=== PATIENT | female | born 1985 | race Caucasian/White ===

== ENCOUNTER → 2020-05-16 | Outpatient (CLI) | payer OTHER, SELFPAY ==
[2020-05-20 03:07] LABS: Age Gdln ACOG Testing 30-65 (.)
[2020-05-22 05:09] LABS: HPV APTIMA, High Risk Negative (Negative); HPV Reflexed? NOT INDICATED
== END | disposition home or self-care (01) ==
LOC: LABSPEC 13:23
PROVIDERS: PCP Family Medicine; Visit Provider Obstetrics & Gynecology
DX: Z12.4 Encounter for screening for malignant neoplasm of cervix (principal)
CPT/HCPCS: 88175; G0145

== ENCOUNTER → 2022-08-07 | Outpatient (CLI) | payer OTHER, SELFPAY ==
[2022-08-07 10:45] LABS: Absolute Lymphocyte Count 1.33 X10^3/uL (0.83-4.51); Absolute Neutrophil Count 6.6 X10^3/uL (2.0-7.7); Basophil# 0.03 X10^3/uL; Basophil% 0.4 % (0-1); Eosinophil# 0.06 X10^3/uL; Eosinophils% 0.7 % (0-5); Hematocrit 40.1 % (37-47); Hemoglobin 14.1 g/dL (12.0-15.0); Lymphocyte # 1.33 X10^3/ul (0.83-4.51); Lymphocyte % 15.7 % (19-41); Mean Corp Hgb Conc 35.2 g/dL (32-36); Mean Corpuscular Volume 85.3 fL (81-99); Mean Platelet Vol. 10.1 fl (6.2-12.0); Monocyte# 0.45 X10^3/uL; Monocyte% 5.3 % (0-10); NRBC Flagged by Analyzer 0 % (0-5); Neutrophil # 6.57 X10^3/uL (2.7-7.7); Neutrophil % 77.4 % (47-70); Platelet Count 199 K/mm3 (150-450); RBC Distribution Width CV 11.8 % (11.6-14.6); RBC Distribution Width SD 36.5 fl (35.1-43.9); White Blood Count 8.5 K/mm3 (4.4-11.0)
[2022-08-07 11:09] LABS: Rubella IgG Reactive (Nonreactive)
[2022-08-07 11:47] LABS: NATERA MAILED SPECIMEN
== END | disposition home or self-care (01) ==
LOC: PAVLAB 10:24
PROVIDERS: PCP Family Medicine; Referring Provider Obstetrics & Gynecology; Visit Provider Obstetrics & Gynecology
DX: O09.521 Supervision of elderly multigravida, first trimester (principal)
CPT/HCPCS: 36415; 85025; 86762; 87086; 87088

== ENCOUNTER → 2022-11-28 | Outpatient (CLI) | payer OTHER, SELFPAY ==
[2022-11-28 09:49] LABS: Absolute Lymphocyte Count 1.44 X10^3/uL (0.83-4.51); Absolute Neutrophil Count 5.8 X10^3/uL (2.0-7.7); Basophil# 0.04 X10^3/uL; Basophil% 0.5 % (0-1); Eosinophil# 0.06 X10^3/uL; Eosinophils% 0.8 % (0-5); Hematocrit 37.1 % (37-47); Hemoglobin 12.9 g/dL (12.0-15.0); Lymphocyte # 1.44 X10^3/ul (0.83-4.51); Lymphocyte % 18.4 % (19-41); Mean Corp Hgb Conc 34.8 g/dL (32-36); Mean Corpuscular Hgb 30.9 pg (27.0-32.0); Mean Platelet Vol. 10.3 fl (6.2-12.0); Monocyte# 0.34 X10^3/uL; Monocyte% 4.3 % (0-10); NRBC Flagged by Analyzer 0 % (0-5); Neutrophil # 5.78 X10^3/uL (2.7-7.7); Neutrophil % 73.7 % (47-70); Platelet Count 151 K/mm3 (150-450); RBC Distribution Width CV 12.3 % (11.6-14.6); RBC Distribution Width SD 39.8 fl (35.1-43.9); Red Blood Count 4.17 M/mm3 (4.2-5.4); White Blood Count 7.8 K/mm3 (4.4-11.0)
[2022-11-28 10:08] LABS: Glucose Challenge Gest 1H 50g 121 mg/dL (70-140)
[2022-11-28 10:41] LABS: HIV - WCH Non-Reactive (Nonreactive); Syphilis Antibodies Non-reactive
== END | disposition home or self-care (01) ==
LOC: PAVLAB 09:12
PROVIDERS: PCP Family Medicine; Referring Provider Registered Nurse; Visit Provider Registered Nurse
DX: O09.529 Supervision of elderly multigravida, unspecified trimester (principal); Z3A.00 Weeks of gestation of pregnancy not specified
CPT/HCPCS: 36415; 82950; 85025; 86703; 86780

== ENCOUNTER → 2022-12-18 | Outpatient (CLI) | payer OTHER, SELFPAY | END | disposition home or self-care (01) | LOC: LABSPEC 12:38 | PROVIDERS: Visit Provider Obstetrics & Gynecology | DX: O26.899 Other specified pregnancy related conditions, unspecified trimester (principal); N89.8 Other specified noninflammatory disorders of vagina | CPT/HCPCS: 87070; 87205 ==

== ENCOUNTER → 2023-01-28 | Outpatient (CLI) | payer OTHER, SELFPAY | END | disposition home or self-care (01) | LOC: LABSPEC 16:35 | PROVIDERS: Visit Provider Obstetrics & Gynecology | DX: O09.529 Supervision of elderly multigravida, unspecified trimester (principal) | CPT/HCPCS: 87081 ==

== ENCOUNTER → 2023-02-05 | Outpatient (CLI) | payer OTHER, SELFPAY ==
[2023-02-05 12:12] LABS: ROM Internal Control Test YES-OK TO RESULT pt. (Internal QC); ROM Patient Test Negative (Negative)
== END | disposition home or self-care (01) ==
LOC: LABSPEC 11:51
PROVIDERS: Referring Provider Registered Nurse; Visit Provider Registered Nurse
DX: O09.529 Supervision of elderly multigravida, unspecified trimester (principal)
CPT/HCPCS: 84112

== ENCOUNTER → 2023-02-14 | Outpatient (CLI) | payer OTHER, SELFPAY ==
[2023-02-14 10:35] LABS: Absolute Lymphocyte Count 1.68 X10^3/uL (0.83-4.51); Absolute Neutrophil Count 6.5 X10^3/uL (2.0-7.7); Basophil# 0.06 X10^3/uL; Basophil% 0.7 % (0-1); Eosinophil# 0.07 X10^3/uL; Eosinophils% 0.8 % (0-5); Hematocrit 39.7 % (37-47); Hemoglobin 13.4 g/dL (12.0-15.0); Lymphocyte # 1.68 X10^3/ul (0.83-4.51); Lymphocyte % 18.8 % (19-41); Mean Corp Hgb Conc 33.8 g/dL (32-36); Mean Corpuscular Hgb 30.7 pg (27.0-32.0); Mean Corpuscular Volume 90.8 fL (81-99); Mean Platelet Vol. 11.5 fl (6.2-12.0); Monocyte# 0.52 X10^3/uL; Monocyte% 5.8 % (0-10); NRBC Flagged by Analyzer 0 % (0-5); Neutrophil # 6.51 X10^3/uL (2.7-7.7); Neutrophil % 72.7 % (47-70); Platelet Count 124 K/mm3 (150-450); RBC Distribution Width CV 13.6 % (11.6-14.6); Red Blood Count 4.37 M/mm3 (4.2-5.4)
== END | disposition home or self-care (01) ==
LOC: PAVLAB 10:23
PROVIDERS: PCP Family Medicine; Referring Provider Advanced Practice Midwife; Visit Provider Advanced Practice Midwife
DX: Z34.93 Encounter for supervision of normal pregnancy, unspecified, third trimester (principal); Z86.2 Personal history of diseases of the blood and blood-forming organs and certain disorders involving the immune mechanism; Z3A.38 38 weeks gestation of pregnancy
CPT/HCPCS: 36415; 85025

== ENCOUNTER 2023-02-17 07:00 | Inpatient (IN) | payer OTHER, SELFPAY ==
[2023-02-17] VITALS (43 sets, daily range): BP systolic 88–126; BP diastolic 54–77; PULSE 59–90; TEMP 35.7–36.4; O2SAT 97–100; BMI 26.9
[2023-02-17] MEDS: Lactated Ringers 1,000 ML 50 ML IV (07:30)
--- NOTE | 2023-02-17 07:47 | HP.PCM.OB_ITS ---
HPI - General General Date of Admission: 02/17/23 HPI Narrative ZULLY FERNÁNDEZ, is a 37 F who presents for IOL secondary to AMA. Maternal Data Information GALDINO Calculator Estimated Delivery Date Method Current WG Current Estimate 02/24/23 Ultrasound #2 39w 0d Other Estimates 03/06/23 Ultrasound #1 37w 4d PFSH PFS Medical History (Updated 02/14/23 @ 11:15 by Julieta Hall CNM) Gestational thrombocytopenia History of thrombocytopenia Home Medications vits,calcium no.78-iron fumarate-folic acid 29 mg-1 mg tablet (Prenatabs FA) 1 tab PO DAILY 11/20/15 [History Last Taken 11/19/15 one] valacyclovir 500 mg tablet (Valtrex) 500 mg PO DAILY #30 tabs 10/02/22 [Rx Last Taken Unknown] sertraline 50 mg tablet (Zoloft) 50 mg PO DAILY #90 tabs 11/28/22 [Rx Last Taken Unknown] nystatin 100,000 unit/gram topical cream 1 applic topical BID #30 grams 01/16/23 [Rx Last Taken Unknown] Allergy/AdvReac Type Severity Reaction Status Date / Time prednisone AdvReac Intermediate Other Verified 02/14/23 09:40 Family History Mother Breast cancer Cancer Thyroid disorder HYPOTHYROIDISM Surgical History S/P foot surgery, left Social History adopted: No household members: spouse and children housing: house number of children: 2 current occupational status: unemployed current occupation: helps with business current occupational exposures/hazards: No pets and animals: Yes pets and animals: dog(s) history of recent travel: Yes ([place] in July) out of state: Yes out of country: No sexually active: Yes Smoking Status: Never smoker alcohol intake: never substance use type: does not use well-balanced diet: daily or most days caffeine: Yes Type: coffee Number of servings: 1 eating out: rarely or never during the past year weight has: remained stable what type of physical activity do you participate in: none nelia/hinduism: [employer] seatbelt use: always do you feel safe at home: Yes additional social history: Jesús Self employed History 3 Elective abortions Hx Para 2 Spontaneous abortions Hx # Term Pregnancies Ectopic pregnancies Hx # Pregnancies Multiple births # of living children 2 Past Pregnancies Del. Date Name GA/Weeks Outcome Route Bth Weight Gen Labor Lgth Anesthesia Del Locatn Provider FOB Unknown 06/07/13 Hanny 40 live - full term 8#9oz Fema le 12 hours epidural [facility] Libby Youngjonh Jesús Unknown 11/20/15 Falynn 39 live - full term 9#1oz F emale 6-8 Hours epidural [facility] Libby Espinosa Delivery Date: Last Updated by: Lyly Aguirre IOL due to low platelets Visit Details Expected Delivery Route/Plan Labor Preferences- CB/BF classes: no labor support person: Jesús labor intervention preferences: [] pain management options preferred: epidural cut cord/dad catch: yes : yes PP control planned: discussed discussed possible routes of delivery and associated risks: [] special requests: [] Plans Covid status: reviewed Flu vaccine: no Tdap vaccine: decline Rhogam: na LARC form signed: yes Problem list reviewed and updated with the most current plan of care details and appropriate orders placed. Relevant counseling for the gestational age provided. Continue routine care and follow up unless otherwise noted in visit notes/problem list details OB Flowsheet Initial Weight: Not Recorded Date -?-?-?-?-?-?-?-?-?-?-?-?- EGA Weight BP Urine Prot -?-?-?-?-?-?-?-?-?-?-?-?- Glucose FHR FuHt Pres Dilation -?-?-?-?-?-?-?-?-?-?-?-?- Effaced St Visit Note 08/07/22 -?-?-?-?-?-?-?-?-?-?-?-?- 11w 2d 134 lb 2 oz 124/80 -?-?-?-?-?-?-?-?-?-?-?-?- 170 -?-?-?-?-?-?-?-?-?-?-?-?- JV- CRL not cons istent with 6 week us or LMP. new galdino 02/24. 09/05/22 -?-?-?-?-?-?-?-?-?-?-?-?- 15w 3d 139 lb 120/72 -?-?-?-?-?-?-?-?-?-?-?-?- 145 -?-?-?-?-?-?-?-?-?-?-?-?- SM- no vb crampi ng 10/02/22 -?-?-?-?-?-?-?-?-?-?-?-?- 19w 2d 140 lb 2 oz 112/73 Nega tive -?-?-?-?-?-?-?-?-?-?-?-?- Negative 120 -?-?-?-?-?-?--?-?-?-?-?-?- JV- pt has had 4 herpes outbreaks since started and has one now. She will take valtrex bid for 7 days then daily for the rest of . 10/28/22 -?-?-?-?-?-?-?-?-?-?-?-?- 23w 0d 145 lb 6 oz 125/77 Nega tive -?-?-?-?-?-?-?-?-?-?-?-?- Negative 140 24 -?-?-?-?-?-?-?-?-?-?-?-?- LC- no vb/crampi ng. doing well. 28 week labs ordered. concerned with PP depression. counseling form provided. pt off zoloft and does not wish to resume. discussed risk and benefits of medications. would like to hold at this time. 11/28/22 -?-?-?-?-?-?-?-?-?-?-?-?- 27w 3d 147 lb 118/82 Negative -?-?-?-?-?-?-?-?-?-?-?-?- Negative 148 28 -?-?-?-?--?-?-?-?-?-?-?-?- MH-No VB, LOF. G ood FM. 28 wk labs, larc. More anxiety. Restart zoloft. 12/18/22 -?-?-?-?-?-?-?-?-?-?-?-?- 30w 2d 147 lb 4 oz 126/77 Nega tive -?-?-?-?-?-?-?-?-?-?-?-?- Negative 140 31 -?-?-?-?-?-?-?-?-?-?-?-?- JV- pt has incre ased discharge. red top collected. mild back cramping. recommend increase fluids. 01/01/23 -?-?-?-?-?-?-?-?-?-?-?-?- 32w 2d 149 lb 2 oz 98/66 Nega tive -?-?-?-?-?-?-?-?-?-?-?-?- Negative 134 32 -?-?-?-?-?--?-?-?-?-?-?-?- MH-No VB, LOF. g ood FM. Has thrush/exam. Nystatin swish sent. 01/16/23 -?-?-?-?-?-?-?-?-?-?-?-?- 34w 3d 148 lb 2 oz 119/82 Nega tive -?-?-?-?-?-?-?-?-?-?-?-?- Negative 144 34 Cephalic -?-?-?-?-?-?-?-?-?-?-?-?- JV- no lof, vagi nal bleeding or dec fm has rash now bewteen breasts. appears to be experiencing a lot of yeast. treated last week with thrush 01/28/23 -?-?-?-?-?-?-?-?-?-?-?-?- 36w 1d 151 lb 124/86 Negative -?-?-?-?-?-?-?-?-?-?-?-?- Negative 145 35 Cephalic 0 -?-?-?-?-?-?-?-?-?-?-?-?- - -3 JV- no lof , vaginal bleeding, or dec fm. she complains of some lower back pressure and a green vaginal discharge.- bv is neg. 02/05/23 -?-?-?-?-?-?-?-?-?-?-?-?- 37w 2d 149 lb 2 oz 108/71 Nega tive -?-?-?-?-?-?-?-?-?-?-?-?- Negative 135 37 1 -?-?-?-?-?-?-?-?-?-?-?--?- 20 -3 LC- c/o salazar dden LOF overnight, no further leaking. ROM sent. white discharge noted in vaginal. no odor, no s/sx of yeast.+FM, no vb/ctx. 02/14/23 -?-?-?-?-?-?-?-?--?-?-?-?- 38w 4d 151 lb 4 oz 114/72 Nega tive -?-?-?-?-?-?-?-?-?-?-?-?- Negative 140 38 Cephalic 2 -?-?-?-?-?-?-?-?-?-?-?-?- 30 -3 KW-+FM. NO LOF/VB. some ctx noted. Reports thrombocytopenia with prior pregnancies-CBC ordered, requesting IOL next week. 02/17/23 -?-?-?-?-?-?-?-?-?-?-?-?- 39w 0d 152 lb 1.903 oz -?-?-?-?-?-?-?-?-?-?-?-?- -?-?-?-?-?-?-?-?-?-?-?-?- NST FHR Rate Baby A Baseline: 130 Variability:: Moderate Accelerations:: 15 x 15 Decelerations:: None NST Reactive:: Yes FHR Category:: Category I Uterine Activity:: irregular ROS Constitutional Constitutional: Reports systems reviewed and no addt'l complaints, except as documented Eyes Eyes: Denies change in vision ENT HEENT: Reports systems reviewed and no addt'l complaints, except as documented; Denies headache(s) Cardiovascular Cardiovascular: Reports systems reviewed and no addt'l complaints, except as documented; Denies chest pain or dyspnea Respiratory/Chest Respiratory/Chest: Reports systems reviewed and no addt'l complaints, except as documented Gastrointestinal Gastrointestinal: Reports systems reviewed and no addt'l complaints, except as documented; Denies abdominal pain Genitourinary Genitourinary: Reports systems reviewed and no addt'l complaints, except as documented, contractions Details: present (irregular) and movement Details: present; Denies dysuria or genital lesions Musculoskeletal Musculoskeletal: Reports systems reviewed and no addt'l complaints, except as documented Neurologic Neurologic: Reports systems reviewed and no addt'l complaints, except as documented Endocrine Endocrinology: Reports systems reviewed and no addt'l complaints, except as documented Vital Signs Vital Signs Vital Signs: Weight Weight: 152 lb 1.903 oz Body Mass Index (BMI) 26.9 Physical Exam Const alert, oriented x3, no apparent distress and healthy appearing HEENT normocephalic and moist oral mucous membranes Head and Scalp: atraumatic Neck full ROM, no lymphadenopathy, supple and thyroid normal General: trachea midline Lymph Lymphatic: no lymphadenopathy noted Chest inspection of chest normal Resp normal respiratory effort Cardio regular rate GI normal to inspection, nondistended, normoactive bowel sounds, soft to palpation and non-tender Inspection: gravid external exam normal Manual OB Exam: estimated gestational size appropriate, presentation cephalic, dilated, effaced and station Extremity normal to inspection General Extremity: Negative for edema Skin no rashes or lesions noted Neuro no focal motor deficits and deep tendon reflexes 2+ bilaterally Motor Exam: strength 5/5 throughout and clonus absent Psych mental status grossly normal Labs Labs Labs: Blood Type A POSITIVE Antibody Screen NEGATIVE Hct 39.7 % (37-47) Hgb 13.4 g/dL (12.0-15.0) Pap Smear Negative Syphilis Total Ab Non-reactive Rubella IgG Antibody Reactive (Nonreactive) Hep Bs Antigen Negative Chlamydia DNA (ARTEMIO) Negative (Negative-) Neisseria gonorrhoeae DNA (ARTEMIO) Negative (Negative-) HIV 1&2 Antibody Non-Reactive (Nonreactive) Glucose 1 Hr 50 gm 121 mg/dL (70-140) Group B Strep DNA Negative (Negative) Rhogam given: No Assessment & Plan (1) Thrombocytopenia affecting : (2) : QUALIFIERS: Weeks of gestation: 38 weeks Qualified Code(s): Z3A.38 - 38 weeks gestation of COMMENT: GBS neg. anatomy nl, addtnl views 2-4 weeks-completed and normal, NIPT low risk, carrier declined. (3) Anxiety: COMMENT: restart zoloft- doing well (4) Major depressive disorder: COMMENT: off zoloft. encouraged counseling services. 11/28/22 restart zoloft (5) Hx of herpes genitalis: COMMENT: has had 4 outbreaks this . treatment then prophylactic treatment started at 19 weeks. (6) Supervision of elderly multigravida, antepartum: COMMENT: PRR , GALDINO 03/06/23,boy, PC Hanny, Falaryan - Jesús (7) Supervision of normal : COMMENT: NIPT low risk, [facility] records. US on 07/04/22 intrauterine gestational sac situated in the fundal portion of endometrial canal. Contains a yolk sac but no pole. Could be early . Mean gestation sac diameter corresponds to gestational age of 5 weeks. PLAN: Plan Patient presents IOL, plan management for with pit and fb. Pain management: plans epidural. GBS negative. Management of any complications: none I have reviewed the [facility] and made any clinically relevant updates.
[2023-02-17 08:01] LABS: Absolute Lymphocyte Count 1.64 X10^3/uL (0.83-4.51); Absolute Neutrophil Count 6.5 X10^3/uL (2.0-7.7); Basophil# 0.04 X10^3/uL; Basophil% 0.5 % (0-1); Eosinophil# 0.06 X10^3/uL; Eosinophils% 0.7 % (0-5); Hematocrit 37.7 % (37-47); Hemoglobin 12.7 g/dL (12.0-15.0); Lymphocyte # 1.64 X10^3/ul (0.83-4.51); Lymphocyte % 18.8 % (19-41); Mean Corp Hgb Conc 33.7 g/dL (32-36); Mean Corpuscular Hgb 30.2 pg (27.0-32.0); Mean Corpuscular Volume 89.8 fL (81-99); Mean Platelet Vol. 11.1 fl (6.2-12.0); Monocyte# 0.43 X10^3/uL; Monocyte% 4.9 % (0-10); NRBC Flagged by Analyzer 0 % (0-5); Neutrophil # 6.46 X10^3/uL (2.7-7.7); Platelet Count 117 K/mm3 (150-450); RBC Distribution Width CV 13.6 % (11.6-14.6); RBC Distribution Width SD 44.1 fl (35.1-43.9); White Blood Count 8.7 K/mm3 (4.4-11.0)
[2023-02-17] MEDS: 0.9% Normal Saline Single 100 ML IV.SOLN. INTRA-UTER (08:06)
[2023-02-17] MEDS: Oxytocin 15 Units/NS 250ml 15 UNITS/250 ML IV.SOLN 2 UNITS IV (08:14)
[2023-02-17 08:38] LABS: Syphilis Antibodies Non-reactive
[2023-02-17 08:58] LABS: Hepatitis B Surface Antigen Non-Reactive (Nonreactive); Hepatitis C Antibody Non-Reactive (Nonreactive)
[2023-02-17] MEDS: LACTATED RINGERS 500 ML 999 ML IV ×2 (10:30→16:43)
[2023-02-17 11:26] LABS: Chlamydia Trachomatis by PCR Negative (Negative); Neisserai gonorrhoeae by PCR Negative (Negative); Probe Check PASS; Sample Adequacy Control PASS; Specimen Processing Control PASS
[2023-02-17] MEDS: fentaNYL-bupivacaine (epidural) 100 ML BAG EPIDURAL ×2 (11:47→15:55)
[2023-02-17] MEDS: Lactated Ringers 1,000 ML 200 ML IV (15:55)
[2023-02-17] MEDS: Oxytocin 15 Units/NS 250ml 15 UNITS/250 ML IV.SOLN 83 UNITS IV (17:40)
--- NOTE | 2023-02-17 17:56 | EX.PCM.OBRPT ---
Assessment & Plan (1) : QUALIFIERS: Weeks of gestation: 38 weeks Qualified Code(s): Z3A.38 - 38 weeks gestation of COMMENT: GBS neg. anatomy nl, addtnl views 2-4 weeks-completed and normal, NIPT low risk, carrier declined. (2) Thrombocytopenia affecting : (3) Anxiety: COMMENT: restart zoloft- doing well (4) Major depressive disorder: COMMENT: off zoloft. encouraged counseling services. 11/28/22 restart zoloft (5) Hx of herpes genitalis: COMMENT: has had 4 outbreaks this . treatment then prophylactic treatment started at 19 weeks. (6) Supervision of elderly multigravida, antepartum: COMMENT: PRR , GALDINO 03/06/23,boy, CRYSTAL Gamino, Travis - Jesús (7) Supervision of normal : COMMENT: NIPT low risk, [facility] records. US on 07/04/22 intrauterine gestational sac situated in the fundal portion of endometrial canal. Contains a yolk sac but no pole. Could be early . Mean gestation sac diameter corresponds to gestational age of 5 weeks. (8) Vaginal delivery: COMMENT: sm iol ama boy ezekial Maternal Data Information GALDINO Calculator Estimated Delivery Date Method Current WG Current Estimate 02/24/23 Ultrasound #2 39w 0d Other Estimates 03/06/23 Ultrasound #1 37w 4d Vaginal Delivery Operative Information Date of Procedure: 02/17/23 Pre-Operative Diagnosis: see a/p diagnoses Post-Operative Diagnosis: same Surgery / Procedure Performed: Spontaneous Vaginal Delivery Type of Anesthesia: Epidural Special Medications: none Estimated Blood Loss: 200 Fluids Replaced: crystalloid Findings Description of Procedure: Patient began pushing and delivered the head in the JUVENAL presentation. The head was delivered atraumatically . The anterior and posterior shoulders delivered without complication followed by the rest of the and the was placed on the maternal abdomen. Delayed cord clamping was employed for approximately 60 seconds. Cord was clamped and cut and gentle traction was applied to the cord and the placenta delivered spontaneously immediately following it was noted to be intact with three-vessel cord. The perineum and vagina were inspected and noted to have no laceration. EBL was 200 cc. Patient and tolerated delivery well. Amniotic Fluid Description: Clear Placental Delivery Description: Spontaneous Placenta Disposition: [facility] Cord Vessel Description: 3 Vessels Cord Entanglement: None Delayed Cord Clamping: Yes Post Vaginal Delivery Medications Given After Delivery: IV Pitocin Episiotomy Description: None Complication Complications: None Procedures Urinary/Genital [id number]: [id number] Vaginal Delivery [facility]
--- NOTE | 2023-02-17 18:03 | DCINST_ITS ---
Discharge Instructions Diet Discharge Diet: No restrictions Activity Discharge Activity: Return to Normal Activity, May Drive, May Shower and May Take a Tub Bath (in 4 weeks) May resume sexual activity in: 6-8 weeks (after seen by OB provider) Weight Bearing Status: Full weight bearing Lifting Restrictions: none Dressing / Incision Call your doctor if you observe: Fever of 101 or Higher, Inability to urinate, Using more than 1 pad per hour (for more than 2 hours in a row or more), Shortness of breath, Dizziness, Chest pain and - (headache not controlled with tylenol, change in vision) Follow Up Care When: in 6 weeks for visit, call the office to make the appointment. If you had elevated blood pressures call the office to be seen within 1 week. Test Results: Test results from this visit will be discussed in further detail at your follow- up appointment, if applicable. Discharge Plan Admission Admit Date/Time: 02/17/23 07:00 Attending Provider: Sherri Harper Primary Care Provider: Gautam Cui Discharge Orders/Prescriptions Prescriptions: No Action Prenatabs FA 1 TABLET tablet 1 tab PO DAILY valacyclovir [Valtrex] 500 mg tablet 500 mg PO DAILY sertraline [Zoloft] 50 mg tablet 50 mg PO DAILY Referrals / Follow Up: Gautam Cui MD [Primary Care Provider] - Disposition Disposition (needs filled in before D/C Order can be placed): Home, Self Care
--- NOTE | 2023-02-17 20:28 | NURSING ---
epidural catheter removed. Blue tip intact.
[2023-02-18] VITALS (13 sets, daily range): BP systolic 92–117; BP diastolic 53–69; PULSE 66–77; RESP 16–18; TEMP 36.2–36.8; O2SAT 97–98
[2023-02-18] MEDS: Naproxen 500 MG Tablet PO (06:10)
--- NOTE | 2023-02-18 07:48 | PN.OBGYN_ITS ---
Subjective Subjective Patient doing well without complaints. Tolerating PO. Ambulating and voiding without difficulty. Feeding well. Denies chest pain, shortness of breath, calf pain/swelling, fevers, chills, lightheadedness. Objective Data Objective Data Vital Signs: Vital Signs Temp Pulse Resp BP Pulse Ox O2 Del Method 98.2 F 68 16 103/60 98 Room Air 02/18/23 07:41 02/18/23 07:41 02/18/23 07:41 02/18/23 07:41 02/18/23 07:41 02/18/23 07:41 Oxygen Delivery Method Room Air Weight: 152 lb 1.903 oz Body Mass Index (BMI) 26.9 Intake & Output: Intake and Output for Last 24 Hours 02/16/23 02/17/23 02/18/23 23:59 23:59 23:59 Intake Total 2619.62 / 2619.62 Output Total 1400 / 1400 Balance 1219.62 / 1219.62 Lab / Micro Data Attestation: I reviewed the patient's lab results. Result Diagrams: 02/17/23 07:45 Labs: Laboratory Results - last 24 hr 02/17/23 07:45: WBC 8.7, RBC 4.20, Hgb 12.7, Hct 37.7, MCV 89.8, MCH 30.2, MCHC 33.7, RDW Std Deviation 44.1 H, RDW Coeff of Robby 13.6, Plt Count 117 L, MPV 11.1, Immature Gran % (Auto) 1.100 H, Neut % (Auto) 74.0 H, Lymph % (Auto) 18.8 L, [place] % (Auto) 4.9, Eos % (Auto) 0.7, Baso % (Auto) 0.5, Absolute Neuts (auto) 6.5, Absolute Lymphs (auto) 1.64, Nucleated RBC % 0 02/17/23 07:45: Blood Type A POSITIVE, Antibody Screen NEGATIVE 02/17/23 07:45: Syphilis Total Ab Non-reactive 02/17/23 07:45: Hep Bs Antigen Non-Reactive, Hepatitis C Antibody Non-Reactive 02/17/23 09:21: Chlam trachomat DNA PCR Negative, N.gonorrhoeae DNA (PCR) Negative ROS Constitutional Constitutional: Reports systems reviewed and no addt'l complaints, except as documented Cardiovascular Cardiovascular: Reports systems reviewed and no addt'l complaints, except as d ocumented Respiratory/Chest Respiratory/Chest: Reports systems reviewed and no addt'l complaints, except as documented; Denies shortness of breath at rest or shortness of breath with exertion Gastrointestinal Gastrointestinal: Reports systems reviewed and no addt'l complaints, except as documented Genitourinary Genitourinary: Reports systems reviewed and no addt'l complaints, except as documented Musculoskeletal Musculoskeletal: Reports systems reviewed and no addt'l complaints, except as documented Psychiatric Psychiatric: Reports systems reviewed and no addt'l complaints, except as documented Physical Exam Const alert, oriented x3 and no apparent distress General Appearance: cooperative and comfortable Chest inspection of chest normal Resp normal respiratory effort GI normal to inspection, nondistended, normoactive bowel sounds appearance of the vagina normal Uterus Palpation: uterus fundus firm (U) Extremity normal to inspection and full ROM Neuro moves all extremities Psych mental status grossly normal Assessment & Plan (1) Vaginal delivery: COMMENT: sm iol ama boy ezekial (2) Major depressive disorder: COMMENT: off zoloft. encouraged counseling services. 11/28/22 restart zoloft (3) Anxiety: COMMENT: restart zoloft- doing well
[2023-02-18] MEDS: Sertraline 50 MG Tablet PO (10:04)
[2023-02-18] MEDS: Acetaminophen 500 MG Tablet 1000 MG PO ×2 (13:00→19:45)
[2023-02-19 02:06] VITALS: BP 113/67; PULSE 65; RESP 16; TEMP 36.2; O2SAT 98
[2023-02-19 02:07] VITALS: BP 113/67; PULSE 64; O2SAT 99
[2023-02-19 02:08] VITALS: TEMP 36.2
--- NOTE | 2023-02-19 08:19 | PCM.PN.OB ---
Subjective Subjective Patient doing well without complaints. Tolerating PO. Ambulating and voiding without difficulty. Feeding well. Denies chest pain, shortness of breath, calf pain/swelling, fevers, chills, lightheadedness. Objective Data Objective Data Vital Signs: Vital Signs Temp Pulse Resp BP Pulse Ox O2 Del Method 97.2 F L 64 16 113/67 99 Room Air 02/19/23 02:08 02/19/23 02:07 02/19/23 02:06 02/19/23 02:07 02/19/23 02:07 02/19/23 02:06 Oxygen Delivery Method Room Air Weight: 152 lb 1.903 oz Body Mass Index (BMI) 26.9 Intake & Output: Intake and Output for Last 24 Hours 02/17/23 02/18/23 02/19/23 23:59 23:59 23:59 Intake Total 2619.62 / 2619.62 Output Total 1400 / 1400 Balance 1219.62 / 1219.62 Lab / Micro Data Result Diagrams: 02/17/23 07:45 Physical Exam Const alert and oriented x3 HEENT normocephalic Eyes PERRL Neck full ROM Resp normal respiratory effort GI soft to palpation GI Narrative: FF below U Assessment & Plan (1) Vaginal delivery: COMMENT: sm iol ama boy ezekial (2) Major depressive disorder: COMMENT: off zoloft. encouraged counseling services. 11/28/22 restart zoloft (3) Anxiety: COMMENT: restart zoloft- doing well PLAN: Plan s/p PPD # 2 1. routine post delivery care 2. breast feeding- support given 3. rh positive 4. rubella immune 5. home today
[2023-02-19 09:29] VITALS: BP 107/67; PULSE 83; PULSE 84; RESP 14; TEMP 36.8; O2SAT 98
[2023-02-19] MEDS: Sertraline 50 MG Tablet PO (09:57)
== END 2023-02-19 11:05 | disposition home or self-care (01) | DRG 806 ==
PROVIDERS: Admitting Provider Obstetrics & Gynecology; PCP Family Medicine; Visit Provider Obstetrics & Gynecology
DX: O99.12 Other diseases of the blood and blood-forming organs and certain disorders involving the immune mechanism complicating childbirth (principal); Z37.0 Single live birth; D69.6 Thrombocytopenia, unspecified; O98.32 Other infections with a predominantly sexual mode of transmission complicating childbirth; A60.00 Herpesviral infection of urogenital system, unspecified; O99.344 Other mental disorders complicating childbirth; F32.9 Major depressive disorder, single episode, unspecified; F41.9 Anxiety disorder, unspecified; Z3A.38 38 weeks gestation of pregnancy; Z79.899 Other long term (current) drug therapy
CPT/HCPCS: 59025; 59050; 85025; 86780; 86803; 86850; 86900; 86901; 87340; 87491; 87591; 99221; J7120; G0378

== ENCOUNTER → 2024-04-08 | Outpatient (CLI) | payer OTHER, SELFPAY ==
[2024-04-14 12:10] LABS: HPV APTIMA, High Risk Negative (Negative)
== END | disposition home or self-care (01) ==
LOC: LABSPEC 14:52
PROVIDERS: PCP Family Medicine; Referring Provider Obstetrics & Gynecology; Visit Provider Obstetrics & Gynecology
DX: Z12.4 Encounter for screening for malignant neoplasm of cervix (principal)
CPT/HCPCS: 87624; 88175; G0145